=== PATIENT | female | born 1995 | race American Indian/Alaskan Native ===

== ENCOUNTER → 2020-12-21 10:03 | Outpatient (BNVA) | payer OTHER, SELFPAY | PROVIDERS: Family Provider Registered Nurse; PCP Registered Nurse; Visit Provider Nurse Practitioner Family | DX: Z20.822 Contact with and (suspected) exposure to COVID-19 (principal); J06.9 Acute upper respiratory infection, unspecified | CPT/HCPCS: 87635 ==

== ENCOUNTER 2021-01-19 12:18 | Emergency (ER) | payer SELFPAY ==
[2021-01-19 12:35] VITALS: BP 122/77; PULSE 91; RESP 18; TEMP 36.8; O2SAT 99; BMI 26.4
[2021-01-19 13:36] LABS: Urine Color Amber (Yellow)
[2021-01-19 13:37] LABS: Add Urine Culture? No; Add Urine Microscopic? YES; Bacteria Urine 1+ /hpf; Bilirubin Urine Neg (Negative); Blood Urine 3+ (Negative); Glucose Urine UA Norm (Normal); Ketones Urine Negative (Negative); Leukocyte Esterase Urine Negative (Negative); Mucus Urine 3+ /hpf; Nitrate Urine Negative (Negative); Protein Urine 1+ (Negative); RBC Urine TOO NUMEROUS TO CNT /hpf (0-2); Specific Gravity, Urine 1.015 (1.005-1.030); Squamous Epithelial Cell Urine 0-4 /hpf (0-5); Urine Appearance Cloudy (CLEAR); Urobilinogen Urine Norm (Negative); WBC Urine 0-4 /hpf (0-5); pH Urine 7 (5-7)
--- NOTE | 2021-01-19 14:16 | ED_ITS ---
Documented by User: IAN Charles 01/19/21 16:23 HPI - Abdominal Pain General: Chief Complaint: Abdominal Pain Stated Complaint: R FLANK PAIN Time Seen by Provider: 01/19/21 13:32 History of Present Illness: HPI narrative: Patient is a 25 female comes to the ED with right flank pain. Symptoms started yesterday. She she says the pain is in her right side of her lower back and it radiates to the front lower central part of her abdomen. She reports that currently the pain is mild but it comes in waves where it is more severe. The waves of severe pain actually bring her to tears. Patient is currently on control. She also states that she has been having blood in her urine for over a week. She says the blood in her urine comes and goes she does not always have it in her urine every time she goes to the bathroom. Associated Symptoms: Reports hematuria; Denies chills, constipation, diarrhea, dysuria, fever(s), hematochezia, nausea and vomiting Review of Systems Const: Denies: fever(s), chills or fatigue Eyes: Denies: change in vision or eye discomfort ENMT: Denies: throat pain, odynophagia, nasal discharge or nasal congestion Card: Denies: chest pain, palpitations, edema, swelling of feet/ankles, dyspnea on exertion or orthopnea Resp: Denies: dyspnea, productive cough or non-productive cough GI: Reports: abdominal pain (lower central abdomen); Denies: nausea, vomiting, diarrhea, constipation or hematochezia : Reports: flank pain (right) and hematuria; Denies: dysuria Musc: Denies: neck pain, back pain or extremity swelling Skin/Breast: Denies: rash or new lesions Neuro: Denies: headache(s), numbness in extremities or weakness in extremities PFSH ED PFSH: Medical History (Updated 01/21/21 @ 20:49 by Sabina Bourgeois APRN) Renal stones Right ureteral calculus Family History (Updated 01/21/21 @ 14:51 by SHAYAN Mariee) Grandmother Diabetes Grandfather CAD (coronary artery disease) Grandmother Cancer Social History (Updated 01/21/21 @ 14:52 by SHAYAN Mariee) Smoking and tobacco status: light tobacco smoker (VAPES) e-cigarettes Alcohol intake: current Alcohol intake frequency: holidays/special occasions only Marital status: Single Current occupational status: employed Physical Exam Const: COMMON NORMALS: no acute distress, patient oriented x3 and alert GENERAL APPEARANCE: cooperative and comfortable HENMT: COMMON NORMALS: normocephalic HEAD & SCALP: normocephalic MOUTH: Normal oral and palatal mucosa present THROAT: posterior oropharynx normal and uvula midline Neck/C-Spine: COMMON NORMALS: supple GENERAL: Yes normal visual inspection Resp: COMMON NORMALS: normal respiratory effort, No retractions, No use of accessory muscles and clear to auscultation bilaterally AUSCULTATION: clear to auscultation bilaterally Cardio: COMMON NORMALS: regular rate, regular rhythm, S1 normal heart sound present, S2 normal heart sound present, No gallops present (Cardio), No clicks present (Cardio), No murmurs present (Cardio) and Peripheral pulses 2+ throughout RATE: regular rate RHYTHM: regular rhythm HEART SOUNDS: S1 normal heart sound present and S2 normal heart sound present PERIPHERAL PULSES: Peripheral pulses 2+ throughout GI: COMMON NORMALS: Normal to inspection, nondistended, normoactive bowel sounds present, Soft to palpation and no masses PALPATION: Yes Soft to palpation, Yes Tenderness to palpation present (GI) (lower central abdomen (over bladder)) and Yes Bladder palpation abnormal : BLADDER/KIDNEY EXAM: Yes Bladder palpation abnormal Bladder abnormal details: tender and Yes CVA tenderness on the right Back/Pelvis: GENERAL BACK: Yes CVA tenderness Extremity: COMMON NORMALS: normal to inspection and no pedal edema Neuro: COMMON NORMALS: patient oriented x3 SENSORIUM/ORIENTATION: Yes alert GAIT: Yes Normal gait present Skin: GENERAL SKIN EXAM: dry skin Course Reevaluation(s): Reevaluation #1: I told patient about CT findings of a kidney stone on the right side. She is still not having any pain currently. I told her that I could send her home with some pain meds and she says she does not want any narcotic pain meds because they make her sick. She said she would take ibuprofen or Tylenol for any pain at home as needed. Time: 15:19 Vital Signs: Vital signs: Vital Signs Temperature 98.2 F 01/19/21 12:35 Pulse Rate 86 01/19/21 15:48 Respiratory Rate 16 01/19/21 15:48 Blood Pressure 124/72 01/19/21 15:48 Pulse Oximetry 97 01/19/21 15:48 MDM - Abdominal Pain MDM Narrative: Medical decision making narrative: Patient is a 25-year-old female comes to the ED with right flank pain and hematuria. Patient appeared in no acute distress or pain and was nontoxic and resting comfortably on exam bed onto the room. She has some right CVA tenderness and some tenderness when palpating the bladder. Vital stable. UA showed a lot of blood but no signs of infection. The rest of her labs were unremarkable. hCG negative CT abdomen pelvis showed a kidney stone 4 mm on the right side near the UPJ. Patient was given IV fluids tamsulosin while here in the ED. I placed order with case management for patient be referred to Dr. Morse for further evaluation of kidney stone. Patient did not want any narcotic pain meds and said she would take [id number] Tylenol or ibuprofen for pain at home. Patient diagnosed with right-sided kidney stone discharged home with a prescription for tamsulosin and Zofran. I told her case management will contact her in the next several days to set up an appointment with Dr. Morse. Return to ED precautions given. Patient understood and agree with plan. Lab Data: Attestation: I reviewed the patient's lab results. Labs: Lab Results 01/19/21 01/19/21 01/19/21 12:50 14:24 14:24 WBC 8.5 10^3/uL 10^3/ uL (4.0-10.0) RBC 4.77 10^6/uL 10^6 /uL (4.1-5.3) Hgb 13.4 g/dL g/dL (11.5-15.3) Hct 41.3 % % (37.0-47.0) MCV 86.6 fl fl (81-99) MCH 28.1 pg pg (28.0-34.0) MCHC 32.4 g/dL g/dL (30.0-36.0) RDW 12.7 % % (12.1-15.1) Plt Count 274 10^3/cmm 10^3 /cmm (130-400) MPV 11.2 fL H fL (7.4-10.4) Neut % (Auto) 73.6 % % Lymph % (Auto) 18.3 % % [place] % (Auto) 6.3 % % Eos % (Auto) 0.9 % % Baso % (Auto) 0.5 % % Neut # (Auto) 6.22 10^3/uL 10^3 /uL (1.8-7.7) Lymph # (Auto) 1.6 10^3/uL 10^3/ uL (0.8-4.8) [place] # (Auto) 0.5 10^3/uL 10^3/ uL (0.2-0.9) Eos # (Auto) 0.1 10^3/uL 10^3/ uL (0.0-0.8) Baso # (Auto) 0.0 10^3/uL 10^3/ uL (0.0-0.1) Nucleated RBC % (a uto) 0 % % Nucleated RBCs # 0.0 /100WBC /100W BC Sodium 138 mmol/L mmol/L (136-145) Potassium 3.5 mmol/L mmol/L (3.5-5.1) Chloride 103 mmol/L mmol/L (98-107) Carbon Dioxide 26 mmol/L mmol/L (22-29) Anion Gap 12.5 (5-19) BUN 8 mg/dL mg/dL (6-20) Creatinine 0.6 mg/dL mg/dL (0.5-0.9) GFR Calculation 122.8 mL/min mL/m in (90-130) Glucose 85 mg/dL mg/dL (65-115) Calculated Osmolal ity 284 mOsm/kg L mOs m/kg (285-295) Calcium 8.9 mg/dL mg/dL (8.5-10.5) Total Bilirubin 0.6 mg/dL mg/dL (0.15-1.2) AST 12 U/L U/L (0-32) ALT 8 U/L U/L (0-33) Alkaline Phosphata se 79 IU/L IU/L (35-105) Total Protein 7.0 g/dL g/dL (6.6-8.7) Albumin 4.2 g/dL g/dL (3.5-5.2) Globulin 2.8 g/dL g/dL (1.3-4.6) Lipase 16 U/L U/L (13-60) HCG, Qual Urine Color Kerline (Yellow) Urine Appearance Cloudy (CLEAR) Urine pH 7 (5-7) Ur Specific Gravit y 1.015 (1.005-1.030) Urine Protein 1+ H (Negative) Urine Glucose (UA) Norm (Normal) Urine Ketones Negative (Negative) Urine Blood 3+ H (Negative) Urine Nitrate Negative (Negative) Urine Bilirubin Neg (Negative) Urine Urobilinogen Norm mg/dL mg/dL (Negative) Ur Leukocyte Milagros ase Negative (Negative) Urine RBC Too numerous to c nt /hpf H /hpf (0-2) Urine WBC 0-4 /hpf H /hpf (0-5) Ur Squamous Epith Cells 0-4 /hpf H /hpf (0-5) Amorphous Sediment Not Reportable Urine Bacteria 1+ /hpf H /hpf (NONE) Urine Mucus 3+ /hpf /hpf 01/19/21 14:24 WBC RBC Hgb Hct MCV MCH MCHC RDW Plt Count MPV Neut % (Auto) Lymph % (Auto) [place] % (Auto) Eos % (Auto) Baso % (Auto) Neut # (Auto) Lymph # (Auto) [place] # (Auto) Eos # (Auto) Baso # (Auto) Nucleated RBC % (a uto) Nucleated RBCs # Sodium Potassium Chloride Carbon Dioxide Anion Gap BUN Creatinine GFR Calculation Glucose Calculated Osmolal ity Calcium Total Bilirubin AST ALT Alkaline Phosphata se Total Protein Albumin Globulin Lipase HCG, Qual Negative (Negative) Urine Color Urine Appearance Urine pH Ur Specific Gravit y Urine Protein Urine Glucose (UA) Urine Ketones Urine Blood Urine Nitrate Urine Bilirubin Urine Urobilinogen Ur Leukocyte Milagros ase Urine RBC Urine WBC Ur Squamous Epith Cells Amorphous Sediment Urine Bacteria Urine Mucus Imaging Data ^: CT Abd/Pel: Attestation: I personally reviewed and interpreted this imaging study as fol lows: Radiologist's impression: [facility] [address] [place] [address] CT Scan Report Signed Patient: Eliud Middleton Unit #: [id number] : [id number] Age/Sex: 25 / F ADM Date: 01/19/21 Loc: ER Room/Bed: Attending Dr: Ordering Provider/Ordering MD: Aaron Brand Date of Service: 01/19/21 Procedure(s): CT kidney stone [id number] Accession Number(s): [id number] Report Number: [id number] PROCEDURE INFORMATION: Exam: CT Abdomen And Pelvis Without Contrast Exam date and time: 01/19/2021 2:20 PM Age: 25 years old Clinical indication: Other: Hematuria; Abdominal pain; Localized; Right; Additional info: Right flank pain with hematuria TECHNIQUE: Imaging protocol: Computed tomography of the abdomen and pelvis without contrast. Axial, coronal and sagittal reformatted images were created and reviewed. Radiation optimization: All CT scans at this facility use at least one of these dose optimization techniques: automated exposure control; mA and/or kV adjustment per patient size (includes targeted exams where dose is matched to clinical indication); or iterative reconstruction. COMPARISON: US SoftTissue/Extrem Lmt [id number] 02/18/2018 11:01 AM RADIATION DOSE METRICS: Total DLP (mGy-cm): 1298.34 FINDINGS: Lungs: Minimal stranding and groundglass at the lung bases, likely due to atelectasis and/or scarring. Liver: Unremarkable. Gallbladder and bile ducts: No radiodense gallstones. No biliary ductal dilatation. Pancreas: Unremarkable. Spleen: Unremarkable. Adrenal glands: Normal. No mass. Kidneys and ureters: Mild right-sided hydronephrosis and perinephric stranding, secondary to a 4 mm calculus in the region of the UPJ (axial image 92 and coronal image 45). Nonobstructing left renal calculi. Stomach and bowel: No bowel wall thickening. No obstruction. No pneumatosis. Appendix: Normal. Intraperitoneal space: No free fluid. No organized fluid collection. No free air. Vasculature: Unremarkable. No aneurysm. Lymph nodes: No pathologically enlarged lymph nodes. Urinary bladder: Unremarkable as visualized. Reproductive: 3.2 x 2.9 cm right adnexal cystic lesion. Intrauterine device in place. Bones/joints: No acute osseous abnormality. Soft tissues: Unremarkable. CT/CT kidney stone [id number] IMPRESSION: 1. Mild right-sided hydronephrosis and perinephric stranding, secondary to a 4 mm calculus in the region of the UPJ. 2. Additional findings, as above. Radiation Dose CTDIVOL = (mGy): DLP = 1298.34 (mGy-cm) Dictated By: Jett Sarah MD Signed By: Jett Sarah MD Signed Date/Time: 01/19/21 1513 DD/ 1420 Discharge Plan Discharge Patient Disposition: Home Clinical Impression: Kidney stone on right side Condition: Stable Prescriptions: No Action Mirena 20 mcg/24 hours (6 yrs) 52 mg Intrauterine Device See Rx Instructions .ROUTE .COMPLEX RF: 0 phentermine 37.5 mg tablet 37.5 mg PO DAILY PRNRF: 0 Discharge Orders: Discharge ED (Routine); Ordered 01/19/21 Ordered By: Aaron Brand Referrals: Swetha Arroyo FNP [Primary Care Provider] - Discharge Diet: Regular Discharge Activity: Increase activity as tolerated Patient Instructions: Kidney Stones (ED), How to Strain Your Urine (ED) Activity Restrictions/Additional Instructions: Follow-up with medical provider as directed. Case management should be contacting you in the next several days to set up an appointment with Dr. Morse the urologist. Strain urine to catch stone and drink lots of fluid to stay hydrated and help pass stone. Take medications as prescribed. You can take ibuprofen or Aleve for any pain or fevers. Return to the ER or your medical provider if condition worsens. Please read and understand discharge instructions. If any questions, please ask. Coding Level of Care Code ED Information Systems Auditor for Chg Fwd Exam Comprehensive Documented by User: Bobo Napier DO 01/22/21 14:36 HPI - Abdominal Pain General: Chief Complaint: Abdominal Pain Stated Complaint: R FLANK PAIN Time Seen by Provider: 01/19/21 13:32 PFSH ED PFSH: Medical History (Updated 01/21/21 @ 20:49 by Sabina Bourgeois APRN) Renal stones Right ureteral calculus Family History (Updated 01/21/21 @ 14:51 by SHAYAN Mariee) Grandmother Diabetes Grandfather CAD (coronary artery disease) Grandmother Cancer Social History (Updated 01/21/21 @ 14:52 by SHAYAN Mariee) Smoking and tobacco status: light tobacco smoker (VAPES) e-cigarettes Alcohol intake: current Alcohol intake frequency: holidays/special occasions only Marital status: Single Current occupational status: employed Course Vital Signs: Vital signs: Vital Signs Temperature 98.2 F 01/19/21 12:35 Pulse Rate 86 01/19/21 15:48 Respiratory Rate 16 01/19/21 15:48 Blood Pressure 124/72 01/19/21 15:48 Pulse Oximetry 97 01/19/21 15:48 MDM - Abdominal Pain MDM Narrative: Medical decision making narrative: Patient seen by Aaron Brand, reviewed chart assessment and plan agree. Follow-up per discharge instructions. Lab Data: Labs: Lab Results 01/19/21 01/19/21 01/19/21 12:50 14:24 14:24 WBC 8.5 10^3/uL 10^3/ uL (4.0-10.0) RBC 4.77 10^6/uL 10^6 /uL (4.1-5.3) Hgb 13.4 g/dL g/dL (11.5-15.3) Hct 41.3 % % (37.0-47.0) MCV 86.6 fl fl (81-99) MCH 28.1 pg pg (28.0-34.0) MCHC 32.4 g/dL g/dL (30.0-36.0) RDW 12.7 % % (12.1-15.1) Plt Count 274 10^3/cmm 10^3 /cmm (130-400) MPV 11.2 fL H fL (7.4-10.4) Neut % (Auto) 73.6 % % Lymph % (Auto) 18.3 % % [place] % (Auto) 6.3 % % Eos % (Auto) 0.9 % % Baso % (Auto) 0.5 % % Neut # (Auto) 6.22 10^3/uL 10^3 /uL (1.8-7.7) Lymph # (Auto) 1.6 10^3/uL 10^3/ uL (0.8-4.8) [place] # (Auto) 0.5 10^3/uL 10^3/ uL (0.2-0.9) Eos # (Auto) 0.1 10^3/uL 10^3/ uL (0.0-0.8) Baso # (Auto) 0.0 10^3/uL 10^3/ uL (0.0-0.1) Nucleated RBC % (a uto) 0 % % Nucleated RBCs # 0.0 /100WBC /100W BC Sodium 138 mmol/L mmol/L (136-145) Potassium 3.5 mmol/L mmol/L (3.5-5.1) Chloride 103 mmol/L mmol/L (98-107) Carbon Dioxide 26 mmol/L mmol/L (22-29) Anion Gap 12.5 (5-19) BUN 8 mg/dL mg/dL (6-20) Creatinine 0.6 mg/dL mg/dL (0.5-0.9) GFR Calculation 122.8 mL/min mL/m in (90-130) Glucose 85 mg/dL mg/dL (65-115) Calculated Osmolal ity 284 mOsm/kg L mOs m/kg (285-295) Calcium 8.9 mg/dL mg/dL (8.5-10.5) Total Bilirubin 0.6 mg/dL mg/dL (0.15-1.2) AST 12 U/L U/L (0-32) ALT 8 U/L U/L (0-33) Alkaline Phosphata se 79 IU/L IU/L (35-105) Total Protein 7.0 g/dL g/dL (6.6-8.7) Albumin 4.2 g/dL g/dL (3.5-5.2) Globulin 2.8 g/dL g/dL (1.3-4.6) Lipase 16 U/L U/L (13-60) HCG, Qual Urine Color Kerline (Yellow) Urine Appearance Cloudy (CLEAR) Urine pH 7 (5-7) Ur Specific Gravit y 1.015 (1.005-1.030) Urine Protein 1+ H (Negative) Urine Glucose (UA) Norm (Normal) Urine Ketones Negative (Negative) Urine Blood 3+ H (Negative) Urine Nitrate Negative (Negative) Urine Bilirubin Neg (Negative) Urine Urobilinogen Norm mg/dL mg/dL (Negative) Ur Leukocyte Milagros ase Negative (Negative) Urine RBC Too numerous to c nt /hpf H /hpf (0-2) Urine WBC 0-4 /hpf H /hpf (0-5) Ur Squamous Epith Cells 0-4 /hpf H /hpf (0-5) Amorphous Sediment Not Reportable Urine Bacteria 1+ /hpf H /hpf (NONE) Urine Mucus 3+ /hpf /hpf 01/19/21 14:24 WBC RBC Hgb Hct MCV MCH MCHC RDW Plt Count MPV Neut % (Auto) Lymph % (Auto) [place] % (Auto) Eos % (Auto) Baso % (Auto) Neut # (Auto) Lymph # (Auto) [place] # (Auto) Eos # (Auto) Baso # (Auto) Nucleated RBC % (a uto) Nucleated RBCs # Sodium Potassium Chloride Carbon Dioxide Anion Gap BUN Creatinine GFR Calculation Glucose Calculated Osmolal ity Calcium Total Bilirubin AST ALT Alkaline Phosphata se Total Protein Albumin Globulin Lipase HCG, Qual Negative (Negative) Urine Color Urine Appearance Urine pH Ur Specific Gravit y Urine Protein Urine Glucose (UA) Urine Ketones Urine Blood Urine Nitrate Urine Bilirubin Urine Urobilinogen Ur Leukocyte Milagros ase Urine RBC Urine WBC Ur Squamous Epith Cells Amorphous Sediment Urine Bacteria Urine Mucus Discharge Plan Discharge Patient Disposition: Home Clinical Impression: Kidney stone on right side Condition: Stable Prescriptions: No Action Mirena 20 mcg/24 hours (6 yrs) 52 mg Intrauterine Device See Rx Instructions .ROUTE .COMPLEX RF: 0 phentermine 37.5 mg tablet 37.5 mg PO DAILY PRNRF: 0 Discharge Orders: Discharge ED (Routine); Ordered 01/19/21 Ordered By: Aaron Brand Referrals: Swetha Arroyo FNP [Primary Care Provider] - Discharge Diet: Regular Discharge Activity: Increase activity as tolerated Patient Instructions: Kidney Stones (ED), How to Strain Your Urine (ED) Activity Restrictions/Additional Instructions: Follow-up with medical provider as directed. Case management should be contacting you in the next several days to set up an appointment with Dr. Morse the urologist. Strain urine to catch stone and drink lots of fluid to stay hydrated and help pass stone. Take medications as prescribed. You can take ibuprofen or Aleve for any pain or fevers. Return to the ER or your medical provider if condition worsens. Please read and understand discharge instructions. If any questions, please ask. Coding Level of Care Code ED Information Systems Auditor for Shobhag Fwd Exam Comprehensive
--- NOTE | 2021-01-19 14:20 | CTR_ITS ---
PROCEDURE INFORMATION: Exam: CT Abdomen And Pelvis Without Contrast Exam date and time: 01/19/2021 2:20 PM Age: 25 years old Clinical indication: Other: Hematuria; Abdominal pain; Localized; Right; Additional info: Right flank pain with hematuria TECHNIQUE: Imaging protocol: Computed tomography of the abdomen and pelvis without contrast. Axial, coronal and sagittal reformatted images were created and reviewed. Radiation optimization: All CT scans at this facility use at least one of these dose optimization techniques: automated exposure control; mA and/or kV adjustment per patient size (includes targeted exams where dose is matched to clinical indication); or iterative reconstruction. COMPARISON: US SoftTissue/Extrem Lmt [id number] 02/18/2018 11:01 AM RADIATION DOSE METRICS: Total DLP (mGy-cm): 1298.34 FINDINGS: Lungs: Minimal stranding and groundglass at the lung bases, likely due to atelectasis and/or scarring. Liver: Unremarkable. Gallbladder and bile ducts: No radiodense gallstones. No biliary ductal dilatation. Pancreas: Unremarkable. Spleen: Unremarkable. Adrenal glands: Normal. No mass. Kidneys and ureters: Mild right-sided hydronephrosis and perinephric stranding, secondary to a 4 mm calculus in the region of the UPJ (axial image 92 and coronal image 45). Nonobstructing left renal calculi. Stomach and bowel: No bowel wall thickening. No obstruction. No pneumatosis. Appendix: Normal. Intraperitoneal space: No free fluid. No organized fluid collection. No free air. Vasculature: Unremarkable. No aneurysm. Lymph nodes: No pathologically enlarged lymph nodes. Urinary bladder: Unremarkable as visualized. Reproductive: 3.2 x 2.9 cm right adnexal cystic lesion. Intrauterine device in place. Bones/joints: No acute osseous abnormality. Soft tissues: Unremarkable. CT/CT kidney stone [id number] IMPRESSION: 1. Mild right-sided hydronephrosis and perinephric stranding, secondary to a 4 mm calculus in the region of the UPJ. 2. Additional findings, as above. Radiation Dose CTDIVOL = (mGy): DLP = 1298.34 (mGy-cm)
[2021-01-19 14:25] VITALS: BP 125/73; PULSE 86; RESP 16; O2SAT 99
[2021-01-19 14:31] LABS: Basophils % 0.5 %; Eosinophils # 0.1 10^3/uL (0.0-0.8); Eosinophils % 0.9 %; Hematocrit 41.3 % (37.0-47.0); Hemoglobin 13.4 g/dL (11.5-15.3); Lymphocytes # 1.6 10^3/uL (0.8-4.8); Lymphocytes % 18.3 %; Mean Corpuscular HGB Conc 32.4 g/dL (30.0-36.0); Mean Corpuscular Hemoglobin 28.1 pg (28.0-34.0); Mean Corpuscular Volume 86.6 fl (81-99); Mean Platelet Volume 11.2 fL (7.4-10.4); Monocytes # 0.5 10^3/uL (0.2-0.9); Monocytes % 6.3 %; Neutrophils # 6.22 10^3/uL (1.8-7.7); Neutrophils % 73.6 %; Nucleated Red Blood Cells % 0 %; Platelet Count 274 10^3/cmm (130-400); Red Blood Count 4.77 10^6/uL (4.1-5.3); Red Cell Distribution Width 12.7 % (12.1-15.1); White Blood Count 8.5 10^3/uL (4.0-10.0)
[2021-01-19 14:48] LABS: Alanine Aminotransferase 8 U/L (0-33); Albumin Level 4.2 g/dL (3.5-5.2); Alkaline Phosphatase 79 IU/L (35-105); Anion Gap 12.5 (5-19); Aspartate Amino Transferase 12 U/L (0-32); Blood Urea Nitrogen 8 mg/dL (6-20); Calcium 8.9 mg/dL (8.5-10.5); Carbon Dioxide 26 mmol/L (22-29); Chloride 103 mmol/L (98-107); Globulin 2.8 g/dL (1.3-4.6); Glomerular Filtration Rate 122.8 mL/min (90-130); Glucose 85 mg/dL (65-115); Lipase 16 U/L (13-60); Osmolality Calculated 284 mOsm/kg (285-295); Potassium 3.5 mmol/L (3.5-5.1); Sodium 138 mmol/L (136-145); Total Bilirubin 0.6 mg/dL (0.15-1.2)
[2021-01-19 14:49] LABS: HCG, Serum Qual Negative (Negative)
[2021-01-19 15:48] VITALS: BP 124/72; PULSE 86; RESP 16; O2SAT 97
[2021-01-19] MEDS: tamsulosin 0.4 mg Capsule PO (15:48)
[2021-01-19] MEDS: sodium chloride 0.9% 1,000 ML 999 ML IV (15:48)
--- NOTE | 2021-01-20 10:05 | DCPLANNER ---
manager poker had message to schedule a follow up appointment for patient with Dr. Morse. manager poker called the office of Dr. Morse, spoke with Michael, gave clinic patients information. manager poker was told that patients information would be printed and reviewed. Clinic will call patient with appointment information.
--- NOTE | 2021-01-27 15:36 | DCPLANNER ---
Patient had a follow up appointment scheduled for 01.21.[address] Morse - patient did attend appointment.
== END 2021-01-19 16:48 | disposition home or self-care (01) ==
PROVIDERS: Family Medicine; Emergency Provider Physician Assistant; PCP Registered Nurse
DX: N20.0 Calculus of kidney (principal); R31.9 Hematuria, unspecified; Z87.442 Personal history of urinary calculi; F17.290 Nicotine dependence, other tobacco product, uncomplicated
CPT/HCPCS: 74176; 80053; 81001; 83690; 84703; 85025; 96360; 99283; J7030

== ENCOUNTER 2021-01-21 13:49 | Outpatient (CLI) | payer SELFPAY ==
--- NOTE | 2021-01-21 13:53 | XR_ITS ---
WS: [id number] Exam: XR KUB [id number] Date/Time of Exam: 01/21/2021 1:59 PM Reason For Exam: KIDNEY STONE 3 mm calcification superimposes the lower pole the left kidney and may represent a kidney stone. Ther e is also a irregular 4 mm calcification seen adjacent to the right transverse process of L4 that charles ht represent a ureteral stone. No sign of organ enlargement. No bowel obstruction or free air. A T-ty pe IUD is seen in the central pelvis. XR/XR KUB [id number] IMPRESSION: 1. 4 mm crescent-shaped calcification noted adjacent to the L4 right transverse process which might represent a ureteral stone. 2. 3 mm calcification superimposes the lower pole the left kidney probably rep resenting a renal calculus. 3. No acute abdominal process noted.
== END 2021-01-21 13:50 | disposition home or self-care (01) ==
PROVIDERS: PCP Registered Nurse; Visit Provider Urology
DX: N20.0 Calculus of kidney (principal)
CPT/HCPCS: 74018; 81003

== ENCOUNTER 2021-02-02 06:57 | Outpatient (CLI) | payer SELFPAY ==
--- NOTE | 2021-02-02 07:00 | XRR_ITS ---
PROCEDURE INFORMATION: Exam: XR Abdomen Exam date and time: 02/02/2021 7:00 AM Age: 25 years old Clinical indication: Condition or disease; Kidney or ureter condition; Calculus (stone) in ureter; Patient HX: Follow up renal stones TECHNIQUE: Imaging protocol: XR of the abdomen. Views: Frontal supine view of the abdomen. 1 View. COMPARISON: CR XR KUB [id number] 01/21/2021 2:09 PM, CT abdomen/pelvis 01/19/2021 FINDINGS: Gastrointestinal tract: Normal. No bowel dilation. Organs: IUD projects within the mid pelvis. Bones/joints: Similar appearance of a 3 mm calcification projecting over the lower pole of the left kidney. 5 mm calcification projecting over the right transverse process of L4 again noted. Again this could represent a ureteral stone that was seen on prior CT. XR/XR KUB [id number] IMPRESSION: 1. Redemonstration of a 5 mm calcification projecting over the right L4 transverse process which may represent the ureteral stone seen on prior CT. Not significantly changed. 2. Similar 3 mm calcification projecting over the lower pole left kidney corresponding to previously noted renal calculi. Radiation Dose CTDIVOL = (mGy): DLP = (mGy-cm)
== END 2021-02-02 06:58 | disposition home or self-care (01) ==
LOC: RAD 06:58
PROVIDERS: PCP Registered Nurse; Visit Provider Urology
DX: N20.0 Calculus of kidney (principal)
CPT/HCPCS: 74018; 81003

== ENCOUNTER 2021-02-16 07:10 | Outpatient (CLI) | payer SELFPAY ==
--- NOTE | 2021-02-16 07:15 | XRR_ITS ---
PROCEDURE INFORMATION: Exam: XR Abdomen Exam date and time: 02/16/2021 7:15 AM Age: 25 years old Clinical indication: Condition or disease; Kidney or ureter condition; Calculus (stone) in kidney; Additional info: Renal stones TECHNIQUE: Imaging protocol: XR of the abdomen. Views: Frontal supine view of the abdomen. 1 View. COMPARISON: CR XR KUB [id number] 02/02/2021 7:04 AM FINDINGS: Gastrointestinal tract: Prominent stool, without significant bowel dilatation. Organs: Punctate calcifications overlying the left renal fossa suggesting urolithiasis. Obscuration of the right renal fossa by overlying bowel gas and stool. IUD to the left of midline. Bones/joints: Unremarkable. XR/XR KUB [id number] IMPRESSION: Punctate calcifications overlying the left renal fossa suggesting urolithiasis. Radiation Dose CTDIVOL = (mGy): DLP = (mGy-cm)
== END 2021-02-16 07:11 | disposition home or self-care (01) ==
LOC: RAD 07:12
PROVIDERS: PCP Registered Nurse; Visit Provider Urology
DX: N20.0 Calculus of kidney (principal)
CPT/HCPCS: 74018; 81003

== ENCOUNTER 2021-02-18 15:57 | Emergency (ER) | payer SELFPAY ==
[2021-02-18 16:33] VITALS: BP 107/70; PULSE 74; RESP 16; TEMP 36.6; O2SAT 99; BMI 27.2
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
--- NOTE | 2021-02-18 16:39 | W.ED.UPPEXIN ---
HPI - Extremity Injury (Upper) General: Chief Complaint: Extremity Injury, Upper Stated Complaint: Injury Right Hand Time Seen by Provider: 02/18/21 16:26 Source: patient Mode of arrival: ambulatory Limitations: no limitations History of Present Illness: HPI narrative: Patient is a 25-year-old female who presents to ED today for evaluation of a right hand injury that she sustained after trying to punch and break a 2 x 4 board. She has no other complaints or injuries at this time. complaint: injury to: right and hand Onset (ago): hour(s) Other Extremity Injury: Right: hand Other injuries: none Place: home Severity: moderate Relieving factors: immobilization Exacerbating factors: movement of extremity Context: direct blow Associated symptoms: Reports no associated symptoms Review of Systems Musc: Reports: extremity pain (R hand) Skin/Breast: Reports: other (small abrasion to R 4th digit) Neuro: Denies: numbness in extremities or sensory changes PFSH ED PFSH: Medical History Renal stones Right ureteral calculus Family History Grandmother Diabetes Grandfather CAD (coronary artery disease) Grandmother Cancer Social History Alcohol intake: current Alcohol intake frequency: holidays/special occasions only Marital status: Single Current occupational status: employed Physical Exam Const: COMMON NORMALS: no acute distress, average body habitus, patient oriented x3, no limitations, healthy appearing, alert and well nourished Extremity: RIGHT UPPER EXTREMITY: Yes hand & digits OTHER: TTP 4-5 metacarpals, MCP joints and digits; small abrasion to 4th dorsal proximal phalanx (pt refusing tetanus); maintains fairly normal ROM; maximum tenderness is to distal 5th metacarpal-swelling/ecchymosis noted here; NV intact Neuro: COMMON NORMALS: patient oriented x3, moves all extremities, no focal motor deficits and no sensory deficits noted SENSORIUM/ORIENTATION: Yes alert Course Vital Signs: Vital signs: Vital Signs Temperature 97.9 F 02/18/21 16:33 Pulse Rate 74 02/18/21 16:33 Respiratory Rate 16 02/18/21 16:33 Blood Pressure 107/70 02/18/21 16:33 Pulse Oximetry 99 02/18/21 16:33 MDM - Extremity Injury (Upper) MDM Narrative: Medical decision making narrative: Pt here with a Boxer's fracture. She is refusing tetanus. Will place in ulnar gutter splint and have her follow up with orthopedics. She does not want any form of prescription for pain medications. Imaging Data^: XR R hand: Radiologist's impression: [address] [address] XRay Report Signed Patient: Eliud Middleton Unit #: [id number] : [id number] Age/Sex: 25 / F ADM Date: 02/18/21 Loc: ER Room/Bed: Attending Dr: Ordering Provider/Ordering MD: Ene Dang Date of Service: 02/18/21 Procedure(s): XR hand RT min 3V* [id number] Accession Number(s): [id number] Report Number: [id number] PROCEDURE INFORMATION: Exam: XR Right Hand Exam date and time: 02/18/2021 4:38 PM Age: 25 years old Clinical indication: Injury or trauma; Other: Punching injury/trauma; Blunt trauma (contusions or hematomas); Hand; Right TECHNIQUE: Imaging protocol: XR Right hand. Views: 3 or more views. COMPARISON: US SoftTissue/Extrem Lmt [id number] 02/18/2018 11:01 AM FINDINGS: Bones/joints: Comminuted impacted fracture through the distal neck of the right 5th metacarpal with volar angulation. The other bones are intact. Soft tissues: Soft tissue swelling over the dorsal 5th metacarpal phalangeal joint. XR/XR hand RT min 3V* [id number] IMPRESSION: 1. Distal right 5th metacarpal fracture. Radiation Dose CTDIVOL = (mGy): DLP = (mGy-cm) Dictated By: Carlos José Signed By: Carlos José Signed Date/Time: 02/18/21 796 DD/ 1638 Discharge Plan Discharge Patient Disposition: Home Clinical Impression: Closed fracture of 5th metacarpal Qualifiers: Encounter type: initial encounter Metacarpal location: neck Fracture alignment: nondisplaced Laterality: right Qualified Code(s): S62.366A - Nondisplaced fracture of neck of fifth metacarpal bone, right hand, initial encounter for closed fracture Condition: Stable Prescriptions: No Action Mirena 20 mcg/24 hours (6 yrs) 52 mg Intrauterine Device See Rx Instructions .ROUTE .COMPLEX RF: 0 phentermine 37.5 mg tablet 37.5 mg PO DAILY PRNRF: 0 Discharge Orders: Discharge ED (Routine); Ordered 02/18/21 Ordered By: Ene Dang Referrals: Swetha Arroyo FNP [Primary Care Provider] - Patient Instructions: Boxer Fracture (ED) Activity Restrictions/Additional Instructions: As we discussed case management should contact you shortly to set you up with your orthopedic appointment. You did not want prescription pain medications-you may treat with OTC Tylenol and/or Ibuprofen as needed for discomfort. You may also ice and elevate extremity to help alleviate discomfort. 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
--- NOTE | 2021-02-22 10:51 | DCPLANNER ---
health information manager had message to schedule a follow up appointment for patient with ortho. health information manager called the ortho clinic, spoke with Marjorie, gave clinic patients information. health information manager was told that patients information will be printed and reviewed. Clinic will call patient with appointment information.
--- NOTE | 2021-02-24 11:36 | DCPLANNER ---
Patient has a follow up appointment scheduled for Monday, March 01, 2021 at 8:[address] Hunter at [facility]. Clinic will call patient with appointment information.
--- NOTE | 2021-03-19 11:47 | DCPLANNER ---
Patient had a follow up appointment scheduled for 03.01.21 with ortho - patient did attend appointment.
== END 2021-02-18 17:21 | disposition home or self-care (01) ==
PROVIDERS: Emergency Provider Physician Assistant; PCP Registered Nurse
DX: S62.666A Nondisplaced fracture of distal phalanx of right little finger, initial encounter for closed fracture (principal); W22.8XXA Striking against or struck by other objects, initial encounter
CPT/HCPCS: 29125; 73130; 99283

== ENCOUNTER 2021-03-01 13:34 | Outpatient (CLI) | payer SELFPAY | END 2021-03-01 13:35 | disposition home or self-care (01) | LOC: SPT 13:35 | PROVIDERS: PCP Registered Nurse; Visit Provider Orthopaedic Surgery | DX: Z46.89 Encounter for fitting and adjustment of other specified devices (principal); S62.306A Unspecified fracture of fifth metacarpal bone, right hand, initial encounter for closed fracture; X58.XXXA Exposure to other specified factors, initial encounter | CPT/HCPCS: 97760; L3984 ==

== ENCOUNTER → 2022-08-01 08:24 | Outpatient (BNVA) | payer OTHER, SELFPAY | PROVIDERS: PCP Family Medicine Adult Medicine; Visit Provider Obstetrics & Gynecology | DX: Z34.90 Encounter for supervision of normal pregnancy, unspecified, unspecified trimester (principal); N92.6 Irregular menstruation, unspecified | CPT/HCPCS: 81025; 84315 ==

== ENCOUNTER → 2022-08-04 10:23 | Outpatient (BNVA) | payer OTHER, SELFPAY | PROVIDERS: PCP Family Medicine Adult Medicine; Visit Provider Obstetrics & Gynecology | DX: Z36.87 Encounter for antenatal screening for uncertain dates (principal) | CPT/HCPCS: 76801 ==

== ENCOUNTER → 2022-08-19 15:47 | Outpatient (BNVA) | payer OTHER, SELFPAY | PROVIDERS: PCP Family Medicine Adult Medicine; Visit Provider Obstetrics & Gynecology | DX: Z34.90 Encounter for supervision of normal pregnancy, unspecified, unspecified trimester (principal) | CPT/HCPCS: 80307; 84315; 85027; 86592; 86762; 86803; 86850; 86900; 87086; 87340; 87806 ==

== ENCOUNTER 2022-09-02 07:55 | Emergency (ER) | payer OTHER, SELFPAY ==
--- NOTE | 2022-09-02 08:00 | W.ED.PREGNAN ---
HPI - General: Chief complaint: Vaginal Bleeding Stated complaint: 12 weeks preg, bleeding Time Seen by Provider: 09/02/22 07:59 Source: patient Mode of arrival: ambulatory History of Present Illness: 26-year-old female presents emergency room with complaints of vaginal bleeding that began around 5 AM today. Patient is . Currently 11 weeks 6 days gestation based on 7-week 5-day ultrasound done on August 04, 2022 giving an EDC of 03/18/2023. Patient began having bleeding overnight has passed moderate amount of blood as had a blood typing done previously as part of her OB work-up and she was O-. No pelvic pain or cramping. She denies any vaginal discharge no dysuria urgency or frequency. Reviewing her chart she has had previous kidney stones but has not had any flank pain or other symptoms of stones recently. MD Complaint: vaginal bleeding Onset (ago): hour(s) Relieving factors: none Exacerbating factors: none Vaginal discharge: none Vaginal bleeding: light OB History - Current : no complications OB History - Previous Pregnancies: no complications care: followed by OB (Darek) and previous ultrasound confirms IUP Associated symptoms: Deny abdominal pain, dysuria, malaise, nausea or vomiting Review of Systems Const: Denies: fever(s), chills, body aches, change in appetite, fatigue or malaise ENMT: Denies: throat pain, ear or mastoid pain, nasal discharge or nasal congestion Card: Denies: chest pain, edema, dyspnea on exertion or orthopnea Resp: Denies: dyspnea, productive cough or non-productive cough GI: Denies: abdominal pain, nausea, vomiting, hematemesis, coffee ground emesis, diarrhea, constipation, bloating, hematochezia or melena : Reports: vaginal bleeding; Denies: flank pain, difficulty voiding, dysuria, urinary frequency or urinary urgency Skin/Breast: Denies: rash or pruritus PFSH ED PFSH: Medical History Anxiety about health Hydradenitis Obesity (BMI 30.0-34.9) Renal stones Right ureteral calculus Surgical History H/O mastopexy Hx of wisdom tooth extraction Family History Grandmother Diabetes maternal Breast cancer maternal Grandfather CAD (coronary artery disease) Diabetes Maternal Stroke maternal Heart disease maternal Grandmother Cancer Mother Hyperlipidemia Hypertension Father Stroke Family/Other Breast cancer maternal aunt maternal cousin Colon cancer maternal Denies family history of Ovarian cancer Uterine cancer Thyroid condition Social History Alcohol intake: current Alcohol intake frequency: holidays/special occasions only Marital status: Single Current occupational status: employed Physical Exam Const: GENERAL APPEARANCE: cooperative and comfortable ORIENTATION/CONSCIOUSNESS: Yes awake, Yes oriented to person, Yes oriented to place and Yes oriented to time HENMT: COMMON NORMALS: normocephalic, atraumatic and hearing grossly normal bilaterally HEAD & SCALP: normocephalic and atraumatic Resp: COMMON NORMALS: normal respiratory effort, No retractions, No use of accessory muscles and clear to auscultation bilaterally AUSCULTATION: clear to auscultation bilaterally Cardio: COMMON NORMALS: regular rate, regular rhythm and No murmurs present (Cardio) RATE: regular rate RHYTHM: regular rhythm GI: COMMON NORMALS: Soft to palpation and No hepatosplenomegaly present AUSCULTATION: Yes normoactive bowel sounds PALPATION: Yes Soft to palpation, No Tenderness to palpation present (GI), No Guarding due to palpation present (GI) and Yes No hepatosplenomegaly present Back/Pelvis: OTHER: Patient placed in dorsolithotomy position nurse present. GC chlamydia and wet mount done. Minimal bleeding from the cervical os. Extremity: COMMON NORMALS: normal to inspection, capillary refill normal, no clubbing, cyanosis or edema, no calf tenderness and no pedal edema Neuro: SENSORIUM/ORIENTATION: Yes oriented to person, Yes oriented to place and Yes oriented to time Skin: COMMON NORMALS: no rashes or lesions noted GENERAL SKIN EXAM: no rashes or lesions noted Course Vital Signs: Vital signs: Vital Signs Temperature 97.7 F 09/02/22 11:06 Pulse Rate 72 09/02/22 11:06 Respiratory Rate 20 H 09/02/22 11:06 Blood Pressure 104/65 09/02/22 11:06 Pulse Oximetry 98 09/02/22 11:06 Oxygen Delivery Me thod Room Air 09/02/22 09:06 MDM - OB/Uterine Contractions Medical Decision Making GC chlamydia wet mount negative. Ultrasound was initially done as transabdominal per the recommendation of radiologist we had the tech come back and do a transvaginal shows a small subchorionic hemorrhage. She not actively bleeding now discussed her findings with her discharge patient home have her follow-up with her OB. Recommend pelvic rest. Return if is further problems. Medical Records I reviewed the patient's medical records. Lab Data I reviewed the patient's lab results. 09/02/22 09:08 09/02/22 09:08 Radiology Impressions Obstetrics Ultrasound 09/02/22 08:17 IMPRESSION: 1. Single intrauterine gestation of 11 weeks 6 days with an EDC of 03/18/2023. 2. Normal cardiac activity. 3. Anterior placenta. 4. Small heterogeneous fluid collection just anterior to the cervical os measures 2.8 x 1.0 cm. Most consistent with a very small subchorionic hemorrhage. Not seen on the initial ultrasound of 08/04/2022. Laboratory Results WBC 10.9 10^3/uL (4.0-10.0) H 09/02/22 09:08 RBC 4.42 10^6/uL (4.1-5.3) 09/02/22 09:08 Hgb 12.3 g/dL (11.5-15.3) 09/02/22 09:08 Hct 39.2 % (37.0-47.0) 09/02/22 09:08 MCV 88.7 fl (81-99) 09/02/22 09:08 MCH 27.8 pg (28.0-34.0) L 09/02/22 09:08 MCHC 31.4 g/dL (30.0-36.0) 09/02/22 09:08 RDW 13.2 % (12.1-15.1) 09/02/22 09:08 Plt Count 212 10^3/cmm (130-400) 09/02/22 09:08 MPV 11.1 fL (7.4-10.4) H 09/02/22 09:08 Neut % (Auto) 80.8 % 09/02/22 09:08 Lymph % (Auto) 12.0 % 09/02/22 09:08 [place] % (Auto) 5.7 % 09/02/22 09:08 Eos % (Auto) 0.6 % 09/02/22 09:08 Baso % (Auto) 0.5 % 09/02/22 09:08 Neut # (Auto) 8.80 10^3/uL (1.8-7.7) H 09/02/22 09:08 Lymph # (Auto) 1.3 10^3/uL (0.8-4.8) 09/02/22 09:08 [place] # (Auto) 0.6 10^3/uL (0.2-0.9) 09/02/22 09:08 Eos # (Auto) 0.1 10^3/uL (0.0-0.8) 09/02/22 09:08 Baso # (Auto) 0.1 10^3/uL (0.0-0.1) 09/02/22 09:08 Nucleated RBC % (auto) 0 % 09/02/22 09:08 Nucleated RBCs # 0.0 /100WBC 09/02/22 09:08 Sodium 135 mmol/L (136-145) L 09/02/22 09:08 Potassium 3.5 mmol/L (3.5-5.1) 09/02/22 09:08 Chloride 103 mmol/L (98-107) 09/02/22 09:08 Carbon Dioxide 21 mmol/L (22-29) L 09/02/22 09:08 Anion Gap 14.5 (5-19) 09/02/22 09:08 BUN 7 mg/dL (6-20) 09/02/22 09:08 Creatinine 0.5 mg/dL (0.5-0.9) 09/02/22 09:08 GFR Calculation 150.3 mL/min (90-130) H 09/02/22 09:08 Glucose 82 mg/dL (65-115) 09/02/22 09:08 Calculated Osmolality 277 mOsm/kg (285-295) L 09/02/22 09:08 Calcium 8.6 mg/dL (8.5-10.5) 09/02/22 09:08 Total Bilirubin 0.3 mg/dL (0.15-1.2) 09/02/22 09:08 AST 32 U/L (0-32) 09/02/22 09:08 ALT 30 U/L (0-33) 09/02/22 09:08 Alkaline Phosphatase 68 U/L (35-105) 09/02/22 09:08 Total Protein 6.4 g/dL (6.6-8.7) L 09/02/22 09:08 Albumin 3.7 g/dL (3.5-5.2) 09/02/22 09:08 Globulin 2.7 g/dL (1.3-4.6) 09/02/22 09:08 Ser , Semi-Qnt 42982.00 mIU/mL 09/02/22 09:08 Urine Color Light yellow (Yellow) 09/02/22 08:56 Urine Appearance Clear (CLEAR) 09/02/22 08:56 Urine pH 6 (5-7) 09/02/22 08:56 Ur Specific [place] 1.010 (1.005-1.030) 09/02/22 08:56 Urine Protein Neg (Negative) 09/02/22 08:56 Urine Glucose (UA) Norm (Normal) 09/02/22 08:56 Urine Ketones Negative (Negative) 09/02/22 08:56 Urine Blood 2+ (Negative) H 09/02/22 08:56 Urine Nitrate Negative (Negative) 09/02/22 08:56 Urine Bilirubin Neg (Negative) 09/02/22 08:56 Urine Urobilinogen Neg mg/dL (Negative) 09/02/22 08:56 Ur Leukocyte Esterase Negative (Negative) 09/02/22 08:56 Urine RBC 5-10 /hpf (0-2) H 09/02/22 08:56 Urine WBC 0-4 /hpf (0-5) H 09/02/22 08:56 Ur Squamous Epith Cells 0-4 /hpf (0-5) H 09/02/22 08:56 Amorphous Sediment Not Reportable 09/02/22 08:56 Urine Bacteria Trace /hpf (NONE) 09/02/22 08:56 Urine Mucus Trace /hpf 09/02/22 08:56 Blood Type O Negative 09/02/22 09:08 Rho(D) Type Negative 09/02/22 09:08 Antibody Screen Negative 09/02/22 09:08 Discharge Plan Discharge Patient Disposition: Home Clinical Impression: Subchorionic hemorrhage of placenta in first trimester Condition: Stable Prescriptions: No Action calcium carbonate [Tums] 300 mg (750 mg) tablet,chewable 300 mg PO BID PRN famotidine [Pepcid] 20 mg tablet 20 mg PO BID pyridoxine (vitamin B6) 25 mg tablet 25 mg PO DAILY Flintstones Multivitamin Tablet,Chewable 1 tab PO BID Unisom (doxylamine) 25 mg tablet 25 mg PO Q6H PRN Discharge Orders: Discharge ED (Routine); Ordered 09/02/22 Ordered By: Bobo Napier Referrals: Lauro Zamorano MD [Primary Care Provider] - Discharge Diet: Usual diet Discharge Activity: Limit activity as instructed Patient Instructions: Opioid Safety, Pain Management Activity Restrictions/Additional Instructions: You were seen today for a subchorionic hemorrhage. On the ultrasound did not appear large. Recommend pelvic rest and no strenuous activity. Call your level vial inspector and tester's office regarding this condition further instructions on any further follow-up. You were given RhoGAM today because your blood type is O-. 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
[2022-09-02 08:02] VITALS: BMI 34.4
--- NOTE | 2022-09-02 08:17 | US_ITS ---
WS: [id number] EARLY OBSTETRICAL ULTRASOUND (<14 WEEKS). HISTORY: First trimester bleeding COMPARISON: 08/04/2022 both transabdominal and transvaginal imaging is submitted. Single intrauterine gestational sac is identified. Cardiac activity at 160 BPM. [place]-rump length bryan sures 5.2 cm which corresponds to a gestation of 11w6d. Normal-appearing yolk sac and amnion demonstr ated. Placenta is developing anteriorly. On transvaginal imaging the cervix appears closed measuring 4.0 cm in length. There is a very small complex collection noted near the internal cervical os which is pro bably a small subchorionic hemorrhage measuring approximately 2.8 x 1.0 cm. No large hematoma. No free fluid. RIGHT ovarian corpus luteum cyst measures 2.5 x 3.1 cm. Normal vascularity RIGHT ovary. LEFT ovary is not visualized. US/US OB limited [id number] IMPRESSION: 1. Single intrauterine gestation of 11 weeks 6 days with an EDC of 03/18/2023. 2. Normal cardiac activity. 3. Anterior placenta. 4. Small heterogeneous fluid collection just anterior to the cervical os measu res 2.8 x 1.0 cm. Most consistent with a very small subchorionic hemorrhage. No t seen on the initial ultrasound of 08/04/2022.
[2022-09-02 08:30] VITALS: BP 107/68
[2022-09-02 09:06] VITALS: BP 108/67; PULSE 96; RESP 18; TEMP 36.7; O2SAT 98
[2022-09-02 09:10] LABS: Add Urine Microscopic? YES; Bilirubin Urine Neg (Negative); Blood Urine 2+ (Negative); Glucose Urine UA Norm (Normal); Ketones Urine Negative (Negative); Leukocyte Esterase Urine Negative (Negative); Nitrate Urine Negative (Negative); Protein Urine Neg (Negative); Urine Appearance Clear (CLEAR); Urine Color Light yellow (Yellow); Urobilinogen Urine Neg (Negative); pH Urine 6 (5-7)
[2022-09-02 09:18] LABS: Basophils # 0.1 10^3/uL (0.0-0.1); Basophils % 0.5 %; Eosinophils # 0.1 10^3/uL (0.0-0.8); Eosinophils % 0.6 %; Hematocrit 39.2 % (37.0-47.0); Hemoglobin 12.3 g/dL (11.5-15.3); Lymphocytes # 1.3 10^3/uL (0.8-4.8); Mean Corpuscular HGB Conc 31.4 g/dL (30.0-36.0); Mean Corpuscular Hemoglobin 27.8 pg (28.0-34.0); Mean Corpuscular Volume 88.7 fl (81-99); Mean Platelet Volume 11.1 fL (7.4-10.4); Monocytes # 0.6 10^3/uL (0.2-0.9); Monocytes % 5.7 %; Neutrophils % 80.8 %; Nucleated Red Blood Cells % 0 %; Platelet Count 212 10^3/cmm (130-400); Red Blood Count 4.42 10^6/uL (4.1-5.3); Red Cell Distribution Width 13.2 % (12.1-15.1); White Blood Count 10.9 10^3/uL (4.0-10.0)
[2022-09-02 09:22] LABS: Add Urine Culture? No; Bacteria Urine TRACE /hpf; Mucus Urine TRACE /hpf; Squamous Epithelial Cell Urine 0-4 /hpf (0-5); WBC Urine 0-4 /hpf (0-5)
[2022-09-02 09:48] LABS: Alanine Aminotransferase 30 U/L (0-33); Albumin Level 3.7 g/dL (3.5-5.2); Alkaline Phosphatase 68 U/L (35-105); Anion Gap 14.5 (5-19); Aspartate Amino Transferase 32 U/L (0-32); Blood Urea Nitrogen 7 mg/dL (6-20); Calcium 8.6 mg/dL (8.5-10.5); Carbon Dioxide 21 mmol/L (22-29); Chloride 103 mmol/L (98-107); Globulin 2.7 g/dL (1.3-4.6); Glomerular Filtration Rate 150.3 mL/min (90-130); Glucose 82 mg/dL (65-115); Osmolality Calculated 277 mOsm/kg (285-295); Potassium 3.5 mmol/L (3.5-5.1); Sodium 135 mmol/L (136-145); Total Bilirubin 0.3 mg/dL (0.15-1.2); Total Protein 6.4 g/dL (6.6-8.7)
[2022-09-02 10:36] VITALS: BP 104/65
[2022-09-02 10:58] VITALS: BP 104/65; PULSE 98; RESP 20; TEMP 36.5
[2022-09-02 11:06] VITALS: BP 104/65; PULSE 72; RESP 20; TEMP 36.5; O2SAT 98
== END 2022-09-02 11:07 | disposition home or self-care (01) ==
PROVIDERS: Emergency Provider Family Medicine; PCP Family Medicine Adult Medicine
DX: O20.9 Hemorrhage in early pregnancy, unspecified (principal); Z3A.11 11 weeks gestation of pregnancy
CPT/HCPCS: 36415; 36430; 76815; 80053; 81001; 84702; 85025; 86850; 86900; 87210; 87491; 87591; 90384; 99284

== ENCOUNTER → 2022-10-06 08:04 | Outpatient (BNVA) | payer OTHER, SELFPAY | PROVIDERS: PCP Family Medicine Adult Medicine; Visit Provider Nurse Practitioner Women's Health | DX: O41.8X90 Other specified disorders of amniotic fluid and membranes, unspecified trimester, not applicable or unspecified (principal); O46.8X9 Other antepartum hemorrhage, unspecified trimester; Z67.91 Unspecified blood type, Rh negative; O09.299 Supervision of pregnancy with other poor reproductive or obstetric history, unspecified trimester; Z3A.16 16 weeks gestation of pregnancy | CPT/HCPCS: 80307; 84315; 87086; 88175 ==

== ENCOUNTER → 2022-11-02 09:30 | Outpatient (BNVA) | payer OTHER, SELFPAY | PROVIDERS: PCP Family Medicine Adult Medicine; Visit Provider Nurse Practitioner Women's Health | DX: Z34.80 Encounter for supervision of other normal pregnancy, unspecified trimester (principal) | CPT/HCPCS: 76805 ==

== ENCOUNTER → 2022-11-29 08:00 | Outpatient (BNVA) | payer OTHER, SELFPAY | PROVIDERS: PCP Family Medicine Adult Medicine; Visit Provider Nurse Practitioner Women's Health | DX: Z34.80 Encounter for supervision of other normal pregnancy, unspecified trimester (principal) | CPT/HCPCS: 82950; 84315 ==

== ENCOUNTER → 2022-12-27 08:12 | Outpatient (BNVA) | payer OTHER, SELFPAY | PROVIDERS: PCP Family Medicine Adult Medicine; Visit Provider Nurse Practitioner Women's Health | DX: Z34.90 Encounter for supervision of normal pregnancy, unspecified, unspecified trimester (principal); R31.9 Hematuria, unspecified; Z67.91 Unspecified blood type, Rh negative; E66.9 Obesity, unspecified | CPT/HCPCS: 84315; 85025; 86850; 87086 ==

== ENCOUNTER 2023-02-14 11:11 | Outpatient (CLI) | payer OTHER, SELFPAY ==
[2023-02-14 11:11] VITALS: BMI 39.2
[2023-02-14 11:32] VITALS: BP 132/71; PULSE 109
[2023-02-14 11:46] LABS: Bilirubin Urine Neg (Negative); Blood Urine 3+ (Negative); Glucose Urine UA Norm (Normal); Ketones Urine Negative (Negative); Nitrate Urine Negative (Negative); Protein Urine Neg (Negative); Urine Appearance Hazy (CLEAR); Urine Color Yellow (Yellow); Urobilinogen Urine Norm (Negative); pH Urine 5 (5-7)
[2023-02-14 11:47] LABS: Leukocyte Esterase Urine 2+ (Negative)
[2023-02-14 11:52] VITALS: BP 118/61; PULSE 100
[2023-02-14 11:55] LABS: Renal Epithelial Cells Urine RARE /hpf; Transitional Epi Cells Urine 0-4 /hpf; WBC Urine 40-55 /hpf (0-5)
[2023-02-14 11:56] LABS: Add Urine Culture? Yes; Bacteria Urine 1+ /hpf; Hyaline Casts Urine 0-4 /lpf; Mucus Urine 3+ /hpf
[2023-02-14 12:00] VITALS: TEMP 36.8
[2023-02-14 12:20] VITALS: BP 118/61; PULSE 100; RESP 16; TEMP 36.8
[2023-03-11 15:23] VITALS: BMI 38.7
[2023-03-11 15:29] VITALS: BP 117/65; PULSE 102
== END 2023-02-14 12:20 | disposition home or self-care (01) ==
LOC: OPOB 11:15 → OBGYN 11:16
PROVIDERS: PCP Family Medicine Adult Medicine; Visit Provider Obstetrics & Gynecology
DX: O36.8190 Decreased fetal movements, unspecified trimester, not applicable or unspecified (principal); Z3A.00 Weeks of gestation of pregnancy not specified; R10.9 Unspecified abdominal pain
CPT/HCPCS: 59025; 81001; 87086; 99211

== ENCOUNTER → 2023-02-23 14:58 | Outpatient (BNVA) | payer OTHER, SELFPAY | PROVIDERS: PCP Family Medicine Adult Medicine; Visit Provider Obstetrics & Gynecology | DX: Z34.80 Encounter for supervision of other normal pregnancy, unspecified trimester (principal) | CPT/HCPCS: 84315; 87081 ==

== ENCOUNTER → 2023-03-09 07:51 | Outpatient (BNVA) | payer OTHER, SELFPAY | PROVIDERS: PCP Family Medicine Adult Medicine; Visit Provider Obstetrics & Gynecology | DX: Z34.80 Encounter for supervision of other normal pregnancy, unspecified trimester (principal) | CPT/HCPCS: 81000; 87086 ==

== ENCOUNTER 2023-03-11 15:03 | Inpatient (IN) | payer OTHER, SELFPAY ==
[2023-03-11] VITALS (15 sets, daily range): BP systolic 104–129; BP diastolic 58–82; PULSE 81–106; RESP 17; BMI 38.7
[2023-03-11 17:02] LABS: Basophils % 0.2 %; Eosinophils # 0.1 10^3/uL (0.0-0.8); Eosinophils % 0.5 %; Hematocrit 33.1 % (36-47); Lymphocytes # 1.3 10^3/uL (0.8-4.8); Lymphocytes % 13.4 %; Mean Corpuscular HGB Conc 31.4 g/dL (30-55); Mean Corpuscular Hemoglobin 24.8 pg (27-33); Mean Corpuscular Volume 78.8 fl (85-98); Mean Platelet Volume 13.1 fL (7.4-10.4); Monocytes # 0.8 10^3/uL (0.2-0.9); Monocytes % 7.8 %; Neutrophils # 7.41 10^3/uL (1.8-7.7); Neutrophils % 77.5 %; Nucleated Red Blood Cells % 0 %; Platelet Count 209 10^3/cmm (157-399); Red Cell Distribution Width 13.7 % (12.1-15.1); White Blood Count 9.57 10^3/uL (3.29-11.43)
[2023-03-11] MEDS: dextrose 5%-lactated ringers 1,000 ML 125 ML IV (17:22)
[2023-03-11] MEDS: oxytocin 30 UNIT/500 ML BAG IV (17:22)
--- NOTE | 2023-03-11 18:11 | PM.OBGYHP ---
Providers/Chief Complaint Admitting Physician: Celi Bain DO Primary PHARMACY COORDINATOR: Dr. Oswald Primary Care Provider: Lauro Zamorano MD Chief Complaint: Induction HPI PHARMACY COORDINATOR History of Present Illness Eliud Middleton is a 27 year old female G3, P2 with GAMALIEL 03/18/2023 admitted to labor and delivery for elective induction of labor. Patient's record has been reviewed. Patient denies any complications during this . She admits to good movement with no leakage of fluid or vaginal bleeding. Patient denies desire for elective sterilization. Induction of labor was reviewed with patient including risk of intolerance that may indicate risk and needed delivery by section. Patient is aware and understands and agrees if a is needed. Patient's past history of hemorrhage was reviewed patient states that she did require a blood transfusion and had no complications. She would except a blood transfusion if needed with this delivery as well. Present Details : 3 Para: 2 Date of Last Menstrual Period: 06/08/22 Calculated Date of Delivery: 03/15/23 Gestational Age Based on Last Menstrual Period: 39 Dating criteria OB: LMP confirmed by 1st trimester US care: good care Obstetrical complications: none Medical complications OB: none Other Details: 1 08/13/2015 viable female 7 pounds 11 ounces delivered at 39 weeks complicated by hemorrhage. 2 02/05/2018 viable female 8 pounds at 40 weeks without complications. 3?present . Labs Blood type OB HPI: 0 (-) negative Rubella: Immune RPR: Negative GBS: Negative Review of Systems Const: Denies: fever(s) Eyes: Denies: floaters Card: Denies: swelling of feet/ankles GI: Denies: abdominal pain, nausea, vomiting, heartburn or constipation : Denies: dysuria, vaginal bleeding, vaginal discharge or other (contractions/leaking fluid ) Musc: Denies: back pain or muscle cramps Neuro: Denies: headache(s) Psych: Denies: anxiety or depression Medications/Allergies Home Medications Medication Instructions Recorded Confirmed Last Taken Type pediatric multivitamin 1 tab PO BID 08/19/22 03/09/23 Unknown History ([place] Multivitamin chewable tablet) folic acid 1 mg tablet 1 mg PO DAILY 09/21/22 03/09/23 Unknown History Allergies Allergy/AdvReac Type Severity Reaction Status Date / Time No Known Allergies Allergy Verified 03/09/23 07:48 PFSH PHARMACY COORDINATOR PFSH: Medical History No pertinent past medical history neghx: htn,dm,thyroid,dvt/pe PCP: Yulisa Arroyo Anxiety about health Hydradenitis Renal stones Right ureteral calculus Surgical History H/O mastopexy Hx of wisdom tooth extraction Family History Grandmother Diabetes maternal Breast cancer maternal Grandfather CAD (coronary artery disease) Diabetes Maternal Stroke maternal Heart disease maternal Grandmother Cancer Mother Hyperlipidemia Hypertension Father Stroke Family/Other Breast cancer maternal aunt maternal cousin Colon cancer maternal Denies family history of Ovarian cancer Uterine cancer Thyroid disease Other Female Reproductive History: Hx Age of Menarche: 13 Duration of menses: 3-5 days Date of Last Menstrual Period: 06/08/22 Menstrual flow: normal/abnormal: normal Sexual History: Are you sexually active?: Yes How old were you when you first had sex?: 15 How many partners have you had?: 10 More than 5 How long have you been with your current partner?: Since 2019 Hx Sexually Transmitted Diseases: Yes STD History Comment: History of treatment for chlamydia Contraception: Contraception History Comment: 2017 Mirena IUD, removed 01/2022 History History History 3 Term 2 0 Miscarriages/Ectopic 0 Living Children 2 Other History: 1--->08/13/2015 female 7lbs 11oz, vaginal delivery at 39 weeks gestation, had an epidural, denies any complications with delivery but had hemorrhage, [place] [facility] [place] 2--->02/05/1018 female 8lbs, vaginal delivery at 40 weeks gestation, did not have an epidural, denies any complications, delivered by Dr. Randall [place] [facility] [place] 3---> current Care GAMALIEL Calculator Estimated Delivery Date Method Current WG Current Estimate 03/18/23 Ultrasound #1 39w 0d Other Estimates 03/15/23 LMP (Uncertain) 39w 3d 03/18/23 Ultrasound #2 39w 0d Specific Issues/Plans Unknown LMP; 7-week sonogram dates the Obesity Rh- blood type; O NEGATIVE; RHogam at 11 wks; RhoGam at 28 weeks Subchorionic hematoma; diagnosed at 11 weeks Hx PP hemorrhage Vitals/I&O/Wt Last Vital Signs Pulse 97 03/11/23 18:01 BP 118/73 03/11/23 18:01 O2 Del Method Room Air 03/11/23 15:47 Weight last 48 hrs Weight 122.47 kg Physical Exam Narrative: 25-year-old female alert and oriented x 3 no acute distress HENMT: COMMON NORMALS: normocephalic Cardio: COMMON NORMALS: regular rate and regular rhythm Back/Pelvis: COMMON NORMALS: no CVA tenderness OTHER: Abdomen?soft, gravid Extremity: COMMON NORMALS: normal to inspection, no calf tenderness and no pedal edema Neuro: COMMON NORMALS: patient oriented x3, CN's II-XII intact bilaterally, moves all extremities and deep tendon reflexes 2+ bilaterally Data 03/11/23 15:15 Results Labs OB ([facility]): Obstetrics US 09/02/22 Blood Type O Negative 09/02/22 Antibody Screen Negative 12/27/22 Hct 33.1 % (36-47) L 03/11/23 Hgb 10.40 g/dL (11.27-16.99) L 03/11/23 Rho(D) Type Negative 09/02/22 Plt Count 209 10^3/cmm (157-399) 03/11/23 Hep Bs Antigen Non-reactive (Nonreactive) 08/19/22 Hepatitis C Antibody Non-reactive (Nonreactive) 08/19/22 Rubella IgG Antibody 39.9 IU/mL (0.0-10.0) H 08/19/22 RPR Nonreactive (Nonreactive) 08/19/22 HIV 1&2 Ab & HIV 1 Ag Non-reactive (Non-Reactiv) 08/19/22 Cystic Fibrosis Screen Negative 08/19/22 Gest Glucose Tolerance 100 mg/dL (70-139) 11/29/22 Ser , Semi-Qnt 10913.00 mIU/mL 09/02/22 HCG, Qual Positive (Negative) H 08/01/22 Urine Opiates Screen Negative ng/mL (Negative) 10/06/22 Ur Barbiturates Screen Negative ng/mL (Negative) 10/06/22 Ur Phencyclidine Scrn Negative ng/mL (Negative) 10/06/22 Ur Amphetamines Screen Negative ng/mL (Negative) 10/06/22 U Benzodiazepines Scrn Negative ng/mL (Negative) 10/06/22 Urine Cocaine Screen Negative ng/mL (Negative) 10/06/22 U Marijuana (THC) Screen Negative ng/mL (Negative) 10/06/22 Micro Urine Specimen 03/09/23 Pap Smear Interpret See note 10/06/22 A&P Assessment and plan (1) 39 weeks gestation of : Asymptomatic anemia Nicotine abuse during (vapes) (2) History of hemorrhage, currently : (3) Subchorionic hematoma, antepartum: (4) Rh D negative blood type: (5) Supervision of other normal : (6) Obesity (BMI 30.0-34.9): Attestations Medical Necessity Statement*: Admission to labor and delivery for elective induction of labor. Coding Level of Care Code Acute Code for Chg Fwd Diagnoses 39 weeks gestation of Z3A.39 History of hemorrhage, currently O09.299 Subchorionic hematoma, antepartum O41.8X90; O46.8X9 Rh D negative blood type Z67.91 Supervision of other normal Z34.80 Obesity (BMI 30.0-34.9) E66.9
--- NOTE | 2023-03-11 20:08 | P.PN_ITS ---
Subjective 2 Subjective: Into see patient 27-year-old G3, P2 at 39 weeks gestation. Patient denies pain, admits to good movement. EFM category 1 with contractions every 2 to 3 minutes. Cervix?4 cm / 75%/-2 vertex presentation AROM?moderate clear fluid noted. Vitals/I&O/Wt Last Vital Signs Pulse 97 03/11/23 18:01 Resp 17 03/11/23 16:17 BP 118/73 03/11/23 18:01 O2 Del Method Room Air 03/11/23 16:17 03/11/23 03/11/23 03/11/23 06:59 14:59 22:59 Intake Total 8.866 / 8.866 Output Total 1999 Balance -1990.134 / -1990.134 Weight last 48 hrs Weight 122.47 kg Data 03/11/23 15:15 A&P Assessment and plan (1) 39 weeks gestation of : Asymptomatic anemia Nicotine abuse during (vapes) (2) History of hemorrhage, currently : (3) Subchorionic hematoma, antepartum: (4) Rh D negative blood type: (5) Supervision of other normal : (6) Obesity (BMI 30.0-34.9): Attestations 2 Medical Necessity Statement*: Induction of labor management Coding Level of Care Code Acute Code for Chg Fwd Diagnoses 39 weeks gestation of Z3A.39 History of hemorrhage, currently O09.299 Subchorionic hematoma, antepartum O41.8X90; O46.8X9 Rh D negative blood type Z67.91 Supervision of other normal Z34.80 Obesity (BMI 30.0-34.9) E66.9
--- NOTE | 2023-03-11 22:24 | P.PCNOB_ITS ---
Delivery Note: Date of delivery: March 11, 2023 Pre-delivery diagnoses: 39-week gestation Multigravida History of hemorrhage (first delivery) RHD negative blood type Obesity Post-delivery diagnoses: Same Op report anesthesia: None Delivering Physician: Suman Bain DO Estimated blood loss (mL): 300 Findings: Viable male 9 pounds 8 ounces Delivery: 27-year-old female G3, P3 delivered via of viable male infant OA presentation. The vertex presented and a nuchal cord x 1 was easily reduced. The anterior followed by the posterior shoulders delivered with the remainder of the baby's body to follow. Spontaneous cry was noted. Delay in clamping the cord followed by transecting the cord and placing the baby on mother's abdomen for bonding. pH and cord blood was drawn and handed off. The placenta presented in a [place]co presentation with trailing membranes. The uterus was massaged and noted to firm accordingly. Pitocin IV solution was started in a bolus manner. The vaginal vault was explored and a small second-degree midline laceration was noted. Lidocaine was used to infiltrate the area needed for incision repair. This was repaired with 3-0 Vicryl with good approximation and hemostasis. The uterus again was massaged and noted to be firm. Mother and are both in stable and satisfactory condition. Baby boy 9 pounds 8 ounces 8/9 Post-Delivery Status: Stable History History History 3 Term 2 0 Miscarriages/Ectopic 0 Living Children 2 Other History: 1--->08/13/2015 female 7lbs 11oz, vaginal delivery at 39 weeks gestation, had an epidural, denies any complications with delivery but had hemorrhage, [place] [facility] [place] 2--->02/05/1018 female 8lbs, vaginal delivery at 40 weeks gestation, did not have an epidural, denies any complications, delivered [place] Dr. Randall [place] [facility] [place], [place] 3---> current A&P Assessment and plan (1) Normal spontaneous vaginal delivery: Began care RhoGAM before discharge. (2) 39 weeks gestation of : (3) History of hemorrhage, currently : (4) Rh D negative blood type: (5) Obesity (BMI 30.0-34.9): Coding Level of Care Code Acute Code for Chg Fwd Diagnoses Normal spontaneous vaginal delivery O80 39 weeks gestation of Z3A.39 History of hemorrhage, currently O09.299 Rh D negative blood type Z67.91 Obesity (BMI 30.0-34.9) E66.9
[2023-03-12] VITALS (13 sets, daily range): BP systolic 103–132; BP diastolic 59–88; PULSE 73–100; RESP 16–18; TEMP 36.7–36.8; O2SAT 97
[2023-03-12] MEDS: ibuprofen 800 mg tablet PO (10:53)
[2023-03-12] MEDS: prenatal vitamin Capsule 1 CAP PO (10:53)
[2023-03-12] MEDS: docusate sodium 100 mg Capsule PO (10:54)
[2023-03-12 11:47] LABS: Hematocrit 32.3 % (36-47); Mean Corpuscular HGB Conc 30.7 g/dL (30-55); Mean Corpuscular Hemoglobin 24.2 pg (27-33); Mean Platelet Volume 12.8 fL (7.4-10.4); Platelet Count 190 10^3/cmm (157-399); Red Blood Count 4.09 10^6/uL (3.85-5.65); Red Cell Distribution Width 13.7 % (12.1-15.1); White Blood Count 13.66 10^3/uL (3.29-11.43)
--- NOTE | 2023-03-12 15:38 | PM.OBGYPN ---
[employer] Subjective Subjective: Interval history: Patient doing well s/p viable male. Patient requesting discharge today if baby boy is able to be discharged. Patient is tolerating a regular diet, voiding, ambulating and caring for infant without assistance. She is bottlefeeding. Discussion of expectations to include no heavy lifting pushing or pulling no sex douching or tampons x 6 weeks. Patient is advised to continue her vitamins daily that she has at home. Patient advised to return to the emergency room if excessive bleeding occurs. Patient verbalizes understanding. Labor: Station: +1 Amniotic Membrane Status: Ruptured Monitor Mode: External Contraction Pattern: Regular Vitals/I&O/Wt Last Vital Signs Pulse 78 03/12/23 11:13 Resp 17 03/12/23 11:13 BP 110/74 03/12/23 11:13 O2 Del Method Room Air 03/12/23 11:13 03/12/23 03/12/23 03/12/23 06:59 14:59 22:59 Intake Total 1000 / 1014.816 485.184 / 485.184 Output Total 1000 / 3000 Balance 0 / -1985.184 485.184 / 485.184 Weight last 48 hrs Weight 122.47 kg Physical Exam Back/Pelvis: OTHER: Abdomen?fundus firm below the umbilicus. Lochia light. Extremity: COMMON NORMALS: no pedal edema Data 03/12/23 11:07 A&P Assessment and plan (1) Normal spontaneous vaginal delivery: Will discharge patient to home after 10 PM. If baby is not discharged patient may remain. Patient to call the clinic this week and schedule visit for 4 weeks. (2) Anemia: Patient to continue vitamins which she has at home. (3) 39 weeks gestation of : (4) Rh D negative blood type: Patient to get RhoGAM before discharge. (5) Obesity (BMI 30.0-34.9): Attestations Medical Necessity Statement*: recovery. Will discharge after 24 hours from admission. Coding Level of Care Code Acute Code for Chg Fwd Diagnoses Normal spontaneous vaginal delivery O80 Anemia D64.9 39 weeks gestation of Z3A.39 Rh D negative blood type Z67.91 Obesity (BMI 30.0-34.9) E66.9
== END 2023-03-12 22:50 | disposition home or self-care (01) | DRG 806 ==
LOC: OPOB 15:45 → OBGYN 15:46
PROVIDERS: Admitting Provider Obstetrics & Gynecology; PCP Family Medicine Adult Medicine; Visit Provider Obstetrics & Gynecology
DX: O99.214 Obesity complicating childbirth (principal); O36.0130 Maternal care for anti-D [Rh] antibodies, third trimester, not applicable or unspecified; Z37.0 Single live birth; O99.02 Anemia complicating childbirth; O99.334 Smoking (tobacco) complicating childbirth; F17.290 Nicotine dependence, other tobacco product, uncomplicated; O70.1 Second degree perineal laceration during delivery; Z3A.39 39 weeks gestation of pregnancy
CPT/HCPCS: 36415; 59025; 59409; 85025; 85027; 85460; 86850; 86870; 86900; 90384; 99211; J2590; J7121

== ENCOUNTER → 2023-10-26 07:56 | Outpatient (BNVA) | payer OTHER, SELFPAY | PROVIDERS: PCP Family Medicine Adult Medicine; Visit Provider Nurse Practitioner Women's Health | DX: Z30.014 Encounter for initial prescription of intrauterine contraceptive device (principal) | CPT/HCPCS: 81025 ==